=== PATIENT | male | born 1990 | race Caucasian/White ===

== ENCOUNTER 2016-06-10 00:09 | Emergency (ER) | payer OTHER ==
[~2016-06-10] VITALS: Ht 188 cm; Wt 106.1 kg
[2016-06-10 00:28] VITALS: BP 134/68
--- NOTE | 2016-06-10 00:50 | NUR ---
PT TAKEN TO CT FROM [facility]
--- NOTE | 2016-06-10 01:01 | NUR ---
PT RETURN FROM CT TO LOBBY
--- NOTE | 2016-06-10 01:46 | NUR ---
PT TAKEN TO BED 4
--- NOTE | 2016-06-10 01:57 | NUR ---
Dr. Ann evaluating patient at bedside.
--- NOTE | 2016-06-10 02:00 | NUR ---
25Y/M PATIENT PRESENTS TO ED WITH C/O LT. TOOTH ACHE WITH HEADACHE . PT STATES TOOTH ACHE X 3DAYS, TODAY PAIN INCREASES WITH HEADACHE. DENIES N/V/D; SKIN IS PINK/WARM/DRY; AAOX4 WITH EVEN AND STEADY GAIT; LUNGS CLEAR BL; HR EVEN AND REGULAR; PT DENIES ANY FEVER, CP, SOB, OR COUGH AT THIS TIME; C/O TOOTHACHE, PATIENT STATES PAIN OF 8/10 AT THIS TIME; VSS; PATIENT POSITIONED FOR COMFORT; HOB ELEVATED; BEDRAILS UP X2; BED DOWN. ER MD MADE AWARE OF PT STATUS.
[2016-06-10] MEDS ORDERED: AMOXICILLIN 500 MG CAP PO ONE (02:05)
[2016-06-10] MEDS ORDERED: IBUPROFEN 800 MG TAB PO ONE (02:05)
--- NOTE | 2016-06-10 02:30 | NUR ---
Patient discharged with v/s stable. Written and verbal after care instructions given and explained. Patient alert, oriented and verbalized understanding of instructions. Ambulatory with steady gait. All questions addressed prior to discharge. ID band removed. Patient advised to follow up with PMD. Rx of TYLENOL NO.3, MOTRIN 800 MG, AMOXICILLIN 500 MG given. Patient educated on indication of medication including possible reaction and side effects. Opportunity to ask questions provided and answered.
[2016-06-10 02:38] VITALS: BP 131/70
== END 2016-06-10 02:30 | disposition home or self-care (01) ==
LOC: MED 00:09
DX: K04.7 Periapical abscess without sinus (principal); R51 Headache; Z88.8 Allergy status to other drugs, medicaments and biological substances

== ENCOUNTER 2018-03-26 22:27 | Emergency (ER) | payer OTHER ==
[~2018-03-26] VITALS: Ht 188 cm; Wt 127.0 kg
--- NOTE | 2018-03-26 22:40 | NUR ---
PT TO ER BED 4
[2018-03-26 22:41] VITALS: BP 116/54
[2018-03-26] MEDS ORDERED: KETOROLAC 30 MG/ML VIAL IM ONE (23:10)
--- NOTE | 2018-03-26 23:10 | NUR ---
27/F BIB GIRLFRIEND, C/O OF RIGH ARM PAIN, PATIENT STATES THAT HE FELL OFF OF SKATEBOARD TRIED CATCH FALL WITH ARM. PATIENT HAS SWELLING TO RIGHT ARM, NO DEFORMITY OR DISCOLORATION. ,3 CAP REFILLS, STROING PEDAL PULSES. PATIENT DENIES SOB OR CHEST PAIN. AOX4, CLEAR SPEECH, STEADY GAIT.
[2018-03-27] MEDS ORDERED: HYDROcodone/APAP 5/325 MG 1 TAB TAB PO ONE
--- NOTE | 2018-03-27 00:24 | NUR ---
SUGARTONG SPLINT USING ORTHOGLASS NUMBER 5 USED AND APPLIED TO PATIENT'S RIGHT LOWER ARM. WRAPPED WITH AN SAMMY WRAP NUMBER 4. PMSCs INTACT BEFORE AND AFTER APPLICATION OF THE SPLINT. PT STATES TAHT THE SPLINT FEELS COMFORTABLE AND IS NOT TOO TIGHT. SHOULDER SLING APPLIED TO THE RIGHT SIDE. ADJUSTED TO PATIENT'S POSITION OF COMFORT.
--- NOTE | 2018-03-27 00:27 | NUR ---
Patient discharged with v/s stable. Written and verbal after care instructions given and explained. Patient alert, oriented and verbalized understanding of instructions. Ambulatory with steady gait. All questions addressed prior to discharge. ID band removed. Patient advised to follow up with PMD. Rx of MAPROSYN AND NORCO given. Patient educated on indication of medication including possible reaction and side effects. Opportunity to ask questions provided and answered.
[2018-03-27 00:29] VITALS: BP 105/47
== END 2018-03-27 00:27 | disposition home or self-care (01) ==
LOC: MED 22:27
DX: S52.101A Unspecified fracture of upper end of right radius, initial encounter for closed fracture (principal); M25.531 Pain in right wrist; Z88.8 Allergy status to other drugs, medicaments and biological substances; V00.131A Fall from skateboard, initial encounter; Y93.51 Activity, roller skating (inline) and skateboarding; Y92.89 Other specified places as the place of occurrence of the external cause; Y99.8 Other external cause status
CPT/HCPCS: 29125; 73080; 73110; 96372; 99283; J1885